=== PATIENT | male | born 1950 | race Caucasian/White ===

== ENCOUNTER 2023-04-27 10:30 | Inpatient (IN) ==
[~2023-04-27 10:30] MED LIST: Heparin 1,000 UNIT/ML 10 ml (10,000 UNITS) CATHLAB/DIALYSIS ONE; Heparin 2 UNITS/ML 1000 mls 3,000 ML IV ONE; Iohexol 350 (CONTRAST) 200 ML MDV IV ONE; Lidocaine 1% MPF 5 ML VIAL ONE; Midazolam 5 mg/5 ml VIAL 1 mg/ml 5 ml VIAL (5 mg) ONE; VERAPAMIL 2.5 MG/ML 2 ML VIAL ** 5 mg/2 ml ONE; fentaNYL 100 mcg/2 ml 50 MCG/ML VIAL ONE; nitroGLYCERIN DRIP 25,000 MCG/250 ML BTL ONE
[2023-04-27 10:51] LABS: ABS Basophils 0.1 10^3/uL (0.0-0.1); ABS Eosinophils 0.1 10^3/uL (0.0-0.5); ABS Lymphocytes 0.8 10^3/uL (1.0-4.8); ABS Monocytes 0.8 10^3/uL (0.0-1.1); ABS Neutrophils 10.5 10^3/uL (1.5-7.6); ABS Nucleated RBC 0.01 10^3/ul; Eosinophil % 0.5 %; Hematocrit 40.9 % (38-53); Hemoglobin 14.3 g/dL (13.2-16.3); Lymphocyte % 6.7 %; Mean Corpuscular Hemoglobin 30.5 pg (27-33); Mean Corpuscular Volume 87.1 fL (80-97); Nucleated Red Blood Cells % 0.1 %/100WBC (0.0-0.8); Platelet Count 269 10^3/uL (150-450); Red Blood Count 4.69 10^6/uL (4.06-5.63); Red Cell Distribution Width 13.1 % (12-17); White Blood Count 12.2 10^3/uL (3.6-10.2)
[2023-04-27] MEDS ORDERED: Bivalirudin 250 MG VIAL ONE ×2 (11:06→11:07)
[2023-04-27 11:11] LABS: Albumin 4.6 g/dL (3.2-5.2); Albumin/Globulin Ratio 1.8 (1-3); Calcium 9.5 mg/dL (8.6-10.3); Creatinine, Serum 1.25 mg/dL (0.67-1.17); Globulin 2.5 g/dL (2-4); Potassium 4.1 mmol/L (3.5-5.0); Total Bilirubin 0.9 mg/dL (0.2-1.0); Total Protein 7.1 g/dL (6.4-8.9); eGFR CKD-EPI 60.4 (>60)
[2023-04-27 11:24] LABS: Activated Partial Thrombo Time 253.7 seconds (26.0-38.0)
[2023-04-27 11:26] LABS: INR 1.11 (0.83-1.13)
[2023-04-27] MEDS: NS 0.9% 1000 ml BAG 1,000 ML IV SCH (12:45)
[2023-04-27] MEDS ORDERED: Sulfur Hexaflouride MICROSPHR 25 MG VIAL ONE (15:42)
[2023-04-28 05:05] LABS: ABS Lymphocytes 0.6 10^3/uL (1.0-4.8); ABS Monocytes 0.8 10^3/uL (0.0-1.1); Eosinophil % 0.3 %; Hematocrit 36.4 % (38-53); Lymphocyte % 5.1 %; Mean Corpuscular Hemoglobin 31.1 pg (27-33); Mean Corpuscular Hgb Conc 35.7 g/dL (31-36); Mean Corpuscular Volume 87.3 fL (80-97); Mean Platelet Volume 8.3 fL (7.5-11.2); Platelet Count 257 10^3/uL (150-450); Red Blood Count 4.16 10^6/uL (4.06-5.63); White Blood Count 12.5 10^3/uL (3.6-10.2)
[2023-04-28 05:40] LABS: ALT 34 U/L (7-52); AST 178 U/L (13-39); Albumin/Globulin Ratio 1.9 (1-3); Alkaline Phosphatase 62 U/L (35-149); Anion Gap 5 mmol/L (2-16); Blood Urea Nitrogen 24 mg/dL (6-24); CO2 Carbon Dioxide 25 mmol/L (22-32); Chloride 104 mmol/L (101-111); Cholesterol 107 mg/dL; Creatinine, Serum 1.17 mg/dL (0.67-1.17); Globulin 2.1 g/dL (2-4); Glucose 123 mg/dL (70-100); HDL Cholesterol 31.6 mg/dL; LDL Cholesterol 62 mg/dL; Magnesium 2.1 mg/dL (1.9-2.7); Potassium 4.5 mmol/L (3.5-5.0); Sodium 134 mmol/L (135-145); Total Bilirubin 0.7 mg/dL (0.2-1.0); Total Protein 6.1 g/dL (6.4-8.9); Triglycerides 66 mg/dL; eGFR CKD-EPI 65.4 (>60)
[2023-04-28 06:36] LABS: CKMB ng/mL > 287.0 ng/mL (0.6-6.3)
[2023-04-28] MEDS ORDERED: Metoprolol Tartrate 5 mg VIAL 5 ml VIAL (1 mg/ml) IV PRN (10:40)
[2023-04-29 05:07] LABS: Hematocrit 36.4 % (38-53); Hemoglobin 12.8 g/dL (13.2-16.3); Mean Corpuscular Hemoglobin 30.7 pg (27-33); Mean Corpuscular Hgb Conc 35.2 g/dL (31-36); Mean Corpuscular Volume 87.4 fL (80-97); Mean Platelet Volume 8.1 fL (7.5-11.2); Platelet Count 229 10^3/uL (150-450); Red Blood Count 4.16 10^6/uL (4.06-5.63); White Blood Count 9.8 10^3/uL (3.6-10.2)
[2023-04-29] MEDS: Morphine 2 MG/ML SYRINGE IV ONE (05:11)
[2023-04-29 05:45] LABS: Calcium 9.1 mg/dL (8.6-10.3); Creatinine, Serum 1.13 mg/dL (0.67-1.17); Magnesium 1.9 mg/dL (1.9-2.7); Potassium 4.3 mmol/L (3.5-5.0); eGFR CKD-EPI 68.2 (>60)
[2023-04-29 09:59] VITALS: BP 99/66
== END 2023-04-29 11:05 | disposition home or self-care (01) | DRG 322 ==
LOC: ED 10:30 → MEDTELE 10:55 → CHICARD 10:55 → ICU 12:21 → MEDTELE 04-28 12:49
PROVIDERS: ATTEND Student in an Organized Health Care Education/Training Program